=== PATIENT | male | born 1975 ===

== ENCOUNTER 2021-10-04 22:43 | Emergency (ER) | payer BC ==
[2021-10-04 22:50] VITALS: BP 150/93; PULSE 87; RESP 16; TEMP 98.4
--- NOTE | 2021-10-04 23:07 | ED ---
General Adult HPI - General Chief complaint: Recheck/Abnormal Lab/Rx Stated complaint: needs script Time Seen by Provider: 10/04/21 22:52 Source: patient Mode of arrival: ambulatory Limitations: no limitations - History of Present Illness Initial comments: Patient is a 45-year-old male with a history of kidney transplant in June 2018 who presents seeking medication refill. Patient states he lives in [place] and traveled to [place] to visit a friend. Patient realized he forgot his antirejection medications. Patient states he went to multiple medical centers in [place] who denied giving him prescriptions. Patient needs 3 days of prednisone, slow magnesium, mycophenolate mofetil, and tacrolimus. He denies any concerns including but not limited to, fever, chills, shortness of breath, chest pain, abdominal pain, nausea, vomiting, and burning with urination. - Related Data Allergies Allergy/AdvReac Type Severity Reaction Status Date / Time No Known Allergies Allergy Verified 10/04/21 22:46 Review of Systems ROS Statement: Those systems with pertinent positive or pertinent negative responses have been documented in the HPI. ROS Other: All systems not noted in ROS Statement are negative. Past Medical History Past Medical History: Renal Disease History of Any Multi-Drug Resistant Organisms: None Reported Additional Past Surgical History / Comment(s): kidney transplant Past Psychological History: No Psychological Hx Reported Smoking Status: Never smoker Past Alcohol Use History: None Reported Past Drug Use History: None Reported General Exam Limitations: no limitations General appearance: alert, in no apparent distress Eye exam: Present: normal appearance, PERRL, EOMI. Absent: scleral icterus, conjunctival injection, periorbital swelling Respiratory exam: Present: normal lung sounds bilaterally. Absent: respiratory distress, wheezes, rales, rhonchi, stridor Cardiovascular Exam: Present: regular rate, normal rhythm, normal heart sounds. Absent: systolic murmur, diastolic murmur, rubs, gallop, clicks GI/Abdominal exam: Present: soft, normal bowel sounds. Absent: distended, tenderness, guarding, rebound, rigid Neurological exam: Present: alert, oriented X3, CN II-XII intact Psychiatric exam: Present: normal affect, normal mood Skin exam: Present: warm, dry, intact, normal color. Absent: rash Course Vital Signs 10/04/21 22:46 Temperature 98.4 F Pulse Rate 87 Respiratory 16 Rate Blood Pressure 150/93 O2 Sat by Pulse 98 Oximetry Medical Decision Making - Medical Decision Making This is a 45-year-old male seeking antirejection medications for kidney transplant. Thorough history and examination were performed. Patient was given 4 paper prescriptions for said medications. Dr. Sanchez is my attending. Disposition Clinical Impression: Encounter for medication refill Disposition: HOME SELF-CARE Condition: Good Instructions (If sedation given, give patient instructions): Medicine Refill (ED) Additional Instructions: Follow-up with your transplant doctor. Return to the emergency department if you experience new, concerning, or worsening symptoms. Is patient prescribed a controlled substance at d/c from ED?: No Referrals: None,Stated [Primary Care Provider] - 1-2 days Time of Disposition: 23:07
== END 2021-10-04 23:34 | disposition home or self-care (01) ==
LOC: EC 22:43
DX: Z76.0 Encounter for issue of repeat prescription (principal)
CPT/HCPCS: 99281